=== PATIENT | female | born 1985 | race Two or more races ===

== ENCOUNTER 2017-01-13 18:24 | Inpatient (IN) | payer SELFPAY ==
[~2017-01-13] VITALS: Ht 167.6 cm; Wt 103.0 kg
[~2017-01-13 18:24] MED LIST: HYDR-971 PO; OMEP20TA8 PO
[2017-01-13] MEDS ORDERED: IV NORMAL SALINE 1000ML BAG 1,000 ML IV ONE (19:00)
[2017-01-13] MEDS ORDERED: KETOROLAC TROMETHAMINE 30 MG/ML INJ. IV ONE (19:00)
[2017-01-13 19:20] LABS: BASO # 0.1 x10^3/uL (0.0-0.2); BASO % 1 % (0-3); EOS % 1 % (0-3); HEMATOCRIT 40.2 % (36.0-47.0); HEMOGLOBIN 13.2 g/dL (12.0-15.5); LYMPH # 2.6 x10^3/uL (1.0-4.8); LYMPH % 27 % (24-48); MEAN CORPUSCULAR HEMOGLOBIN 29 pg (25-35); MEAN CORPUSCULAR HGB CONC 33 g/dL (31-37); MEAN CORPUSCULAR VOLUME 87 fL (79-100); MONO % 7 % (0-9); NEUT % 65 % (31-73); PLATELET COUNT 305 x10^3/uL (140-400); RED CELL DISTRIBUTION WIDTH 13.5 % (11.5-14.5); WHITE BLOOD COUNT 9.9 x10^3/uL (4.0-11.0)
[2017-01-13 19:22] LABS: BILIRUBIN,URINE MODERATE (NEG); GLUCOSE,URINE NEGATIVE (NEG); NITRITE,URINE NEGATIVE (NEG); PH,URINE 6.5; PROTEIN,URINE NEGATIVE (NEG-TRACE)
[2017-01-13 19:28] LABS: CALCIUM 8.7 mg/dL (8.5-10.1); CREATININE 0.6 mg/dL (0.6-1.0); GFR 116.6; POTASSIUM 3.5 mmol/L (3.5-5.1)
[2017-01-13 19:33] LABS: BACTERIA,URINE MOD /HPF (0-FEW); RBC,URINE 0 /HPF (0-2); SQUAMOUS EPITHELIAL CELL,UR MOD /LPF
[2017-01-13 19:35] LABS: ALBUMIN 3.7 g/dL (3.4-5.0); ALBUMIN/GLOBULIN RATIO 0.8 (1.0-1.7); TOTAL PROTEIN 8.2 g/dL (6.4-8.2)
--- NOTE | 2017-01-13 20:03 | RAD ---
EXAM: Abdomen sonogram limited. HISTORY: Right upper quadrant pain. TECHNIQUE: Sonographic imaging of the abdomen was performed. COMPARISON: None. FINDINGS: The liver is normal in size. There is hepatic steatosis. No focal hepatic lesion is seen. There is common bile duct dilatation, measuring 8 mm. There is a large mobile stone within the gallbladder, measuring 2.8 cm. There is sludge within the gallbladder neck. There is a positive sonographic Thompson sign. The gallbladder wall is mildly thickened, measuring 3.7 mm. The gallbladder is distended. The right kidney, pancreas, and vena cava and aorta are unremarkable. IMPRESSION: 1. Distended gallbladder containing a large mobile stone and sludge within the gallbladder neck. Given the presence of a positive sonographic Thompson sign and slight gallbladder wall thickening, the possibility of cholecystitis is not excluded. 2. Common bile duct dilatation. The possibility of a distal obstructing lesion is not excluded. Correlate with biliary laboratory values or ERCP or MRCP. 3. Hepatic steatosis. Electronically signed by: Sharon Barrios MD (01/13/2017 7:59 PM)
--- NOTE | 2017-01-13 21:06 | PHYS DOC ---
Past Medical History Past Medical History: No Pertinent History Past Surgical History: Tubal ligation Alcohol Use: None Drug Use: None Adult General Chief Complaint Chief Complaint: ABDOMINAL PAIN HPI HPI 31-year-old female with no prior abdominal history now complaining of right upper quadrant abdominal pain for 2 days. Patient has nausea and vomiting but no fevers chills sweats or shaking chills. She has no diarrhea. Pain is slightly worse with movement and deep inspiration. She has no cough or pleuritic pain. His chest pain of any kind. No vaginal discharge or bleeding. Normal bowel and bladder habits. Patient still has her gallbladder Review of Systems Review of Systems Constitutional: Denies fever or chills [] Eyes: Denies change in visual acuity, redness, or eye pain [] HENT: Denies nasal congestion or sore throat [] Respiratory: Denies cough or shortness of breath [] Cardiovascular: No additional information not addressed in HPI [] GI: Denies abdominal pain, nausea, vomiting, bloody stools or diarrhea [] : Denies dysuria or hematuria [] Musculoskeletal: Denies back pain or joint pain [] Integument: Denies rash or skin lesions [] Neurologic: Denies headache, focal weakness or sensory changes [] Endocrine: Denies polyuria or polydipsia [] Current Medications Current Medications Current Medications Medications (Trade) Dose Ordered Sig/John Start Time Stop Time Status Last Admin Dose Admin Ketorolac Tromethamine (Toradol) 30 mg 1X ONCE 01/13/17 19:00 01/13/17 19:14 DC 01/13/17 19:27 30 MG Sodium Chloride 1,000 ml @ 1,000 mls/hr 1X ONCE 01/13/17 19:00 01/13/17 19:59 DC 01/13/17 19:27 1,000 MLS/HR Allergies Allergies Allergies Coded Allergies Type Severity Reaction Last Updated Verified No Known Drug Allergies 05/31/16 No Physical Exam Physical Exam Patient nontoxic appearing alert and communicative in no acute distress Constitutional: Well developed, well nourished, no acute distress, non-toxic appearance. [] HENT: Normocephalic, atraumatic, bilateral external ears normal, oropharynx moist, no oral exudates, nose normal. [] Eyes: PERRLA, EOMI, conjunctiva normal, no discharge. [] Neck: Normal range of motion, no tenderness, supple, no stridor. [] Cardiovascular:Heart rate regular rhythm, no murmur [] Lungs & Thorax: Bilateral breath sounds clear to auscultation [] Abdomen: Bowel sounds normal, soft, positive right upper quadrant tenderness with Thompson sign. No guarding or rebound no skin changes, no masses, no pulsatile masses. [] Skin: Warm, dry, no erythema, no rash. [] Back: No tenderness, no CVA tenderness. [] Extremities: No tenderness, no cyanosis, no clubbing, ROM intact, no edema. [] Neurologic: Alert and oriented X 3, normal motor function, normal sensory function, no focal deficits noted. [] Psychologic: Affect normal, judgement normal, mood normal. [] Current Patient Data Vital Signs Vital Signs Date Time Temp Pulse Resp B/P (MAP) Pulse Ox O2 Delivery O2 Flow Rate FiO2 01/13/17 19:14 59 21 106/60 (75) 99 Room Air 01/13/17 18:50 98.0 98.0 Lab Values Laboratory Tests Test 01/13/17 17:47 01/13/17 18:25 01/13/17 18:58 POC Urine HCG, Qualitative Hcg negative (Negative) Urine Color Lora Urine Clarity Clear Urine pH 6.5 Urine Specific [place] 1.015 Urine Protein Negative mg/dL (NEG-TRACE) Urine Glucose (UA) Negative mg/dL (NEG) Urine Ketones (Stick) Negative mg/dL (NEG) Urine Blood Negative (NEG) Urine Nitrite Negative (NEG) Urine Bilirubin Moderate (NEG) Urine Urobilinogen Dipstick 1.0 mg/dL (0.2 mg/dL) Urine Leukocyte Esterase Small (NEG) Urine RBC 0 /HPF (0-2) Urine WBC 1-4 /HPF (0-4) Urine Squamous Epithelial Cells Mod /LPF Urine Amorphous Sediment Present /HPF Urine Bacteria Mod /HPF (0-FEW) Urine Mucus Slight /LPF White Blood Count 9.9 x10^3/uL (4.0-11.0) Red Blood Count 4.60 x10^6/uL (3.50-5.40) Hemoglobin 13.2 g/dL (12.0-15.5) Hematocrit 40.2 % (36.0-47.0) Mean Corpuscular Volume 87 fL (79-100) Mean Corpuscular Hemoglobin 29 pg (25-35) Mean Corpuscular Hemoglobin Concent 33 g/dL (31-37) Red Cell Distribution Width 13.5 % (11.5-14.5) Platelet Count 305 x10^3/uL (140-400) Neutrophils (%) (Auto) 65 % (31-73) Lymphocytes (%) (Auto) 27 % (24-48) Monocytes (%) (Auto) 7 % (0-9) Eosinophils (%) (Auto) 1 % (0-3) Basophils (%) (Auto) 1 % (0-3) Neutrophils # (Auto) 6.4 x10^3uL (1.8-7.7) Lymphocytes # (Auto) 2.6 x10^3/uL (1.0-4.8) Monocytes # (Auto) 0.7 x10^3/uL (0.0-1.1) Eosinophils # (Auto) 0.1 x10^3/uL (0.0-0.7) Basophils # (Auto) 0.1 x10^3/uL (0.0-0.2) Sodium Level 139 mmol/L (136-145) Potassium Level 3.5 mmol/L (3.5-5.1) Chloride Level 103 mmol/L (98-107) Carbon Dioxide Level 26 mmol/L (21-32) Anion Gap 10 (6-14) Blood Urea Nitrogen 9 mg/dL (7-20) Creatinine 0.6 mg/dL (0.6-1.0) Estimated GFR (Cockcroft-Gault) 116.6 BUN/Creatinine Ratio 15 (6-20) Glucose Level 104 mg/dL (70-99) H Calcium Level 8.7 mg/dL (8.5-10.1) Total Bilirubin 3.0 mg/dL (0.2-1.0) H Aspartate Amino Transferase (AST) 384 U/L (15-37) H Alanine Aminotransferase (ALT) 610 U/L (14-59) H Alkaline Phosphatase 210 U/L (46-116) H Total Protein 8.2 g/dL (6.4-8.2) Albumin 3.7 g/dL (3.4-5.0) Albumin/Globulin Ratio 0.8 (1.0-1.7) L Lipase 79 U/L (73-393) Laboratory Tests 01/13/17 18:58 Laboratory Tests 01/13/17 18:58 EKG EKG [] Radiology/Procedures Radiology/Procedures Right upper quadrant ultrasound with findings consistent with acute cholecystitis with gallbladder wall thickening and cholelithiasis and dilated common bile duct [] Course & Med Decision Making Course & Med Decision Making Pertinent Labs and Imaging studies reviewed. (See chart for details) Signs and symptoms consistent with suspected cholecystitis confirmed by ultrasound with elevated transaminases. Patient hemodynamically stable with no signs of acute abdomen. Case discussed with Dr. Sampson hospitalist on-call is aware of history and findings and agrees with inpatient admission to his service for further workup and surgical consultation and treatment as needed. [] Dragon Disclaimer Dragon Disclaimer This electronic medical record was generated, in whole or in part, using a voice recognition dictation system. Departure Departure Disposition: 09 ADMITTED INPATIENT Admitting Physician: Chad Sampson Condition: STABLE Referrals: TONY DICKSON (PCP) ERASTO MARTIN MD Jan 13, 2017 21:06
[2017-01-14] VITALS (7 sets, daily range): BP systolic 105–125; BP diastolic 53–75
[2017-01-14] MEDS ORDERED: RANI150T2 PO (02:07)
[2017-01-14] MEDS ORDERED: CIPR500T PO (02:07)
--- NOTE | 2017-01-14 04:05 | ACF ---
Admission Forms Criteria ABDOMINAL PAIN Clinical Indications for Admission to Inpatient Care (Place 'X' for any and all applicable criteria): Admission is indicated for ANY ONE of the following(1)(2)(3)(4)(5): [X]I. Inpatient admission required rather than observation care (Also use Abdominal Pain: Observation Care, as appropriate) because of ANY ONE of the following: [ ]a) Severe pain requiring acute inpatient management [X]b) Identification of etiology/finding that requires inpatient care (eg, aortic dissection, free air) [ ]c) Absent bowel sounds with complete ileus(6) [ ]d) Suspected toxic megacolon [ ]e) Severe electrolyte abnormalities requiring inpatient care [ ]f) High fever or infection requiring inpatient admission as indicated by ANY ONE of following(7)(8): [ ] i) Appropriate outpatient or observational care antimicrobial treatment unavailable, not effective, or not feasible [ ] ii) Documented bacteremia [ ] iii) Temperature > 104.9 degrees F (oral) [ ] iv) T >103.1 F (oral) or < 96.8 F(rectal) that does not respond to all emergency treatment measures [ ]g) Signs of intestinal obstruction [B] [ ]h) Hemodynamic instability [ ]i) IV fluid to replace significant ongoing losses (greater than 3 L/m2 per day) (12)(13) [ ]j) Percutaneous or open drainage (eg, abscess, biliary tract ) procedures [ ]k) Parenteral nutrition regimen that must be implemented on inpatient basis [ ]l) Other condition,treatment or monitoring requiring inpatient admission. [ ]II. Peritoneal signs present [ ]III. Surgery needed that cannot be performed on an ambulatory basis. [ ]IV. Evaluation requires patient to not eat or drink for extended period ( eg, more than 24 hours). [ ]V. Contraindications and/or Inappropriate clinical situations for Observational Care in patients with abdominal pain, when ANY ONE of the following is required: [ ]a) Thorough evaluation is required to prevent catastrophic events due to delays in diagnosing (e.g.Mesenteric ischemia) 1,3 [ ]b) Patient with severe pathology or with chronic symptoms unlikely to improve in the ED stay (3) [ ]. General contraindications and/or Inappropriate clinical situations for Observational Care in patients with abdominal pain, when ANY ONE of the following is required: [ ]a) Prediction of prolongation of LOS based on ANY ONE of the following may be considered as a contraindication for observational care 2, 3, 4, 5, 6, 7, 8, 9, 10, 11 [ ]i) Age > 65 yrs. [ ]ii) Patient arriving by ambulance [ ]iii) Patient with high acuity [ ]iv) Patient requiring vital sign monitoring [ ]v) Patient on IV medication [ ]b) Systolic blood pressures 180mmHg 3,12 [ ]c) Patient with altered mental status including delirium and other alteration of consciousness, (3) [ ]d) Patient whose discharge disposition will be to a longterm home or rehabilitation home should not be managed in Emergency Department Observation Unit. CMS rule requires 3 days hospital stay before such placement.3,13 [ ]e) Patient with failure to thrive due to broad array of etiologies 3,16,17 [ ]f) Inability to ambulate 3,14 Extended stay beyond goal length of stay may be needed for(2)(3): [ ]a) Persistent abdominal pain with suspected intra-abdominal process [ ]b) Diagnosed condition requiring continued stay (e.g., pancreatitis, complicated diverticulitis) [ ]c) Surgery (e.g., colectomy) The original [employer] content created by [email or web address] has been revised. The portions of the content which have been revised are identified through the use of italic text or in bold, and [facility] has neither reviewed nor approved the modified material.All other unmodified content is copyright [email or web address]. Please see references footnoted in the original [employer] edition 2016 Admission Criteria Met?: Yes BRADLEY BELL Jan 14, 2017 04:05
[2017-01-14 12:14] LABS: ALBUMIN 3.6 g/dL (3.4-5.0); CALCIUM 8.7 mg/dL (8.5-10.1); CREATININE 0.6 mg/dL (0.6-1.0); GFR 116.6; POTASSIUM 4.2 mmol/L (3.5-5.1); TOTAL BILIRUBIN 1.5 mg/dL (0.2-1.0); TOTAL PROTEIN 7.2 g/dL (6.4-8.2)
[2017-01-14] MEDS ORDERED: PROPOFOL 20 ML IV ONE (12:23)
[2017-01-14] MEDS ORDERED: fentaNYL PF VIAL 100 MCG/2 ML VIAL ONE ×2 (12:23→13:30)
[2017-01-14] MEDS ORDERED: SUCCINYLCHOLINE 200 MG/10 ML VIAL. ONE (12:23)
[2017-01-14] MEDS ORDERED: LIDOCAINE 2% PF Vial for OR 5 ML VIAL. ONE (12:23)
[2017-01-14] MEDS ORDERED: MIDAZOLAM HCL/PF 2 MG/2 ML VIAL. ONE (12:23)
[2017-01-14] MEDS ORDERED: ROCURONIUM 50 MG/5 ML VIAL. ONE (12:24)
[2017-01-14] MEDS ORDERED: IV RINGERS,LACTATED 1000ML 1,000 ML IV SCH (12:29)
[2017-01-14] MEDS ORDERED: LIDOCAINE 1% 1 ML SYRINGE. ID PRN (12:30)
[2017-01-14] MEDS ORDERED: HYDROmorphone 2 MG/ML VIAL IV PRN (12:30)
[2017-01-14] MEDS ORDERED: fentaNYL PF VIAL 100 MCG/2 ML VIAL IV PRN (12:30)
[2017-01-14] MEDS ORDERED: PROCHLORPERAZINE 10 MG/2 ML VIAL. IV PRN (12:30)
[2017-01-14] MEDS ORDERED: MORPHINE SULFATE 2 MG/ML DISP.SYRIN. IV PRN (12:30)
[2017-01-14] MEDS ORDERED: SURGICEL HEMOSTAT 4X8 EACH. ONE (12:34)
[2017-01-14] MEDS ORDERED: BUPIVACAINE-EPI 0.5%-1:200000 50 ML VIAL. ONE (12:34)
[2017-01-14] MEDS ORDERED: IOHEXOL 300 MG/ML 50 ML VIAL. ONE (12:34)
[2017-01-14] MEDS ORDERED: KETOROLAC 30 MG/ML INJ FOR OR. INJ ONE (12:43)
--- NOTE | 2017-01-14 12:46 | PDOC ---
Provider Note Provider Note #[id number]--aeceoflv. to OR for sumit cummins, judy terry. r/b d/w her via mortgage loan officer originator phone. EVANS CENTENO MD Jan 14, 2017 12:46
[2017-01-14] MEDS ORDERED: DEXAMETHASONE SOD PHOS 20 MG/5 ML VIAL. ONE (12:57)
[2017-01-14] MEDS ORDERED: NEOSTIGMINE METHYLSULFATE 5 MG/5 ML SYRINGE. ONE (13:26)
[2017-01-14] MEDS ORDERED: ONDANSETRON PF 4 MG/2 ML VIAL. ONE (13:26)
[2017-01-14] MEDS ORDERED: GLYCOPYRROLATE 1 MG/5 ML VIAL. ONE (13:26)
[2017-01-14] MEDS ORDERED: GLUCAGON,HUMAN RECOMBINANT 1 MG/ML VIAL. ONE (13:41)
[2017-01-14] MEDS ORDERED: DESFLURANE 61 TO 120 MINUTES IH ONE (14:17)
--- NOTE | 2017-01-14 14:24 | PDOC ---
BRIEF OPERATIVE NOTE Pre-Op Diagnosis #[id number] cholecystitis lap bj, ioc k yuriy jack ebl 25 ivf 800 handy well to rr stable. EVANS CENTENO MD Jan 14, 2017 14:24
[2017-01-14] MEDS: fentaNYL PF VIAL 100 MCG/2 ML VIAL IV PRN ×4 (14:32→14:59)
--- NOTE | 2017-01-14 15:35 | RAD ---
CHOLANGIOGRAM INTRAOPERATIVE Clinical Indication: ACUTE CHOLECYST JOEY Comparison: None. Findings: Fluoroscopic guidance provided by the technologist. Total fluoroscopy time 72.3 seconds. 4 fluoroscopic spot images. Contrast injected into cystic duct remnant. Opacification of intrahepatic and extrahepatic ducts. Hepatic duct is mildly prominent. Minimal spillage of contrast into the duodenum. Contrast leaked at the injection site. A filling defect in the common bile duct is not identified. IMPRESSION: No filling defect in the common bile duct is seen.
[2017-01-14] MEDS: MORPHINE SULFATE 2 MG/ML DISP.SYRIN. IV PRN ×3 (16:20→22:32)
--- NOTE | 2017-01-14 18:06 | OP ---
DATE OF SURGERY: 01/14/2017 PREOPERATIVE DIAGNOSIS: Acute cholecystitis. POSTOPERATIVE DIAGNOSIS: Acute cholecystitis. PROCEDURE: Laparoscopic cholecystectomy with intraoperative cholangiogram. SURGEON: Evans Centeno M.D. ANESTHESIA: General. ESTIMATED BLOOD LOSS: 25 mL. INTRAVENOUS FLUIDS: 800 mL. INDICATIONS: The patient is a 31-year-old female who presents with acute cholecystitis. FINDINGS: Intraoperative cholangiogram is normal. PROCEDURE IN DETAIL: After informed consent was obtained, the patient was taken to the operating room and placed in supine position. After adequate induction of general anesthesia, she was prepped and draped in the usual sterile fashion. An umbilical skin incision was made with a scalpel, subcutaneous tissues with a hemostat. [facility] was used to grab the fascia and lift anteriorly. Veress was used to gain access to the peritoneal cavity. Low opening pressures confirmed intraperitoneal placement of the Veress. Pneumoperitoneum to 15 mmHg was established followed by placement of 5 mm port. A 5 mm 30 degree lens was inserted, which revealed good port placement. No evidence of entry trauma. She was placed head up, rotated towards her left. Three additional ports were placed under direct vision, one was epigastric 11 mm port and two were 5 mm right lateral ports. The fundus of the gallbladder was retracted over liver and slightly towards the right. The infundibulum was retracted towards the right and towards her toes to open the triangle of Calot. The leading peritoneal edge was scored with cautery medially and laterally and carried back towards the liver. [place] dissector was used to dissect out the triangle of Calot. At the completion of dissection, 2 structures were seen leading directly to the gallbladder, one was a cystic artery, one was a cystic duct. The gallbladder had been dissected away from the cystic plate. The liver could be seen behind the gallbladder, base of the gallbladder was free of extraneous tissue. Two clips were placed on cystic artery proximally, one distally and a clip was placed on cystic duct adjacent to the gallbladder. Ductotomy was made with scissors. Intraoperative cholangiogram showed free flow of contrast. The cystic duct, common bile duct, common hepatic, left and right hepatics, intrahepatic radicles, free flow of contrast into the duodenum with no filling defects noted. The cholangiogram was interpreted as normal. In order to get the contrast flow into the duodenum, she was given glucagon, at which point the spasm at the ampulla resolved and then contrast was seen following into the duodenum. After completing the cholangiogram, three clips were placed on the cystic duct distal to the ductotomy. Ductotomy completed with scissors. The cystic duct was quite large and the clips barely encompassed the entire diameter of the duct. Therefore, the cystic duct stump was further secured with a PDS Endoloop. Care was taken to make sure that no clips or PDS Endoloop was placed on undissected areas of the cystic duct. The cystic artery was transected sharply. The gallbladder was removed from the bed of the liver with cautery and placed in laparoscopic bag. There was a small arterial branch bleeding along the gallbladder, liver bed, terminating on the body of the gallbladder. This was controlled with a clip information systems specialist as well. The gallbladder was placed in laparoscopic bag and brought out through the epigastric incision. The right upper quadrant was irrigated. Irrigant returned clear. No bleeding or bile leakage noted. Fascial closure device was used to close the fascia at the epigastric incision using 0 Vicryl suture. The ports removed under direct vision. They were hemostatic. Pneumoperitoneum was desufflated. Skin incisions were closed with 4-0 Monocryl in subcuticular fashion. Sterile dressings were placed after injecting additional local. She tolerated the procedure well. There were no apparent complications. She was then transferred in stable condition to the recovery room. EVANS CENTENO MD DR: LINDSEY/deanna JOB#: [id number] / [id number] TONY Zapata
[2017-01-14] MEDS: oxyCODONE/APAP 5/325 1 TAB TABLET PO PRN ×2 (18:28→22:33)
--- NOTE | 2017-01-14 23:37 | CONS ---
DATE OF CONSULTATION: 01/14/2017 I used the full time staff interpreter phone for the entire visit. CHIEF COMPLAINT: Abdominal pain. HISTORY OF PRESENT ILLNESS: The patient is a 31-year-old female who presents with abdominal pain since Monday. The pain is in her right upper quadrant. It was severe yesterday, it has improved today. It radiates to her back. It is associated with nausea, vomiting and she had jaundice on Monday. She saw her regular doctor on Monday where he started her on ciprofloxacin, but her pain persisted and she presented to the Emergency Room. The pain is a hard constant type of pain. PAST MEDICAL HISTORY: Denies. PAST SURGICAL HISTORY: Tubal ligation. MEDICATIONS AT HOME: 1. Ranitidine. 2. Ciprofloxacin. 3. Omeprazole. ALLERGIES: Denies drug allergies. SOCIAL HISTORY: She is a nonsmoker, nondrinker. FAMILY HISTORY: Noncontributory to this illness. REVIEW OF SYSTEMS: CONSTITUTIONAL: Denies fevers or chills. EYES: Denies abrupt loss of vision or double vision. EARS, NOSE, MOUTH AND THROAT: Denies loss of hearing or ringing in her ears. CARDIOVASCULAR: Denies chest pain or heart palpitations. RESPIRATORY: Denies cough or shortness of breath. GASTROINTESTINAL: See HPI. GENITOURINARY: No dysuria or hematuria. HEMATOLOGIC: No easy bleeding or bruising. MUSCULOSKELETAL: No new myalgias or arthralgias. DERMATOLOGIC: Denies skin rashes or lesions. PSYCHIATRIC: No depression or anxiety. ENDOCRINE: No polyuria or polydipsia. PHYSICAL EXAMINATION: GENERAL: This is a well-developed, well-nourished female in no acute distress. She is obese with a BMI of 36.7. VITAL SIGNS: She is afebrile with a heart rate of 73, respiratory rate 18, blood pressure 108/66, O2 sats 99% on room air. EYES: Pupils are round and reactive. Sclerae are nonicteric. HENT: Head is atraumatic. Mucous membranes moist. Face symmetric. NECK: Supple without cervical lymphadenopathy. Neck is nontender. CARDIOVASCULAR: Palpation of her right radial pulse reveals it to be 2+ right radial arterial pulse. Regular rate and rhythm by palpation. No pedal edema noted. RESPIRATORY: Respirations are nonlabored. CHEST WALL: Nontender to palpation. ABDOMEN: Soft, nondistended. She is tender in the right upper quadrant with a Thompson's sign. DERMATOLOGIC: Exposed portions of her skin are unremarkable. PSYCHIATRIC: Cooperative with appropriate mood and affect. NEUROLOGIC: No resting tremor. She can move all 4 extremities without difficulty. LABORATORY DATA: Reviewed. IMAGING: Reviewed. ASSESSMENT: 1. Acute cholecystitis. 2. Transaminitis, elevated bilirubin, although this is improved from yesterday, bilirubin on admission was 3.0, today is 1.5. 3. Obesity. PLAN: The patient is being taken to the operating room for laparoscopic cholecystectomy with intraoperative cholangiogram, possible open. Risk of bleeding, infection, need to convert to open, injury to intra-abdominal structures requiring repair including hollow viscous bile duct or arterial structures as well as bile leak, retained common duct stone requiring assistance of GI, postoperative diarrhea and remote cardiovascular risks were all discussed with the patient. Questions were answered. She desires to proceed with the procedure. EVANS CENTENO MD DR: LINDSEY/deanna JOB#: [id number] / [id number] TONY Zapata
[2017-01-15 04:05] VITALS: BP 111/61
[2017-01-15 05:59] LABS: BASO % 0 % (0-3); EOS % 0 % (0-3); HEMATOCRIT 37.9 % (36.0-47.0); HEMOGLOBIN 12.2 g/dL (12.0-15.5); LYMPH # 1.8 x10^3/uL (1.0-4.8); LYMPH % 15 % (24-48); MEAN CORPUSCULAR HEMOGLOBIN 28 pg (25-35); MEAN CORPUSCULAR HGB CONC 32 g/dL (31-37); MEAN CORPUSCULAR VOLUME 88 fL (79-100); MONO % 5 % (0-9); NEUT % 79 % (31-73); PLATELET COUNT 288 x10^3/uL (140-400); RED CELL DISTRIBUTION WIDTH 13.7 % (11.5-14.5); WHITE BLOOD COUNT 12.1 x10^3/uL (4.0-11.0)
[2017-01-15 07:00] VITALS: BP 120/70
[2017-01-15] MEDS: oxyCODONE/APAP 5/325 1 TAB TABLET PO PRN ×2 (10:00→14:06)
--- NOTE | 2017-01-15 10:02 | HP ---
ADMIT DATE: 01/13/2017 CHIEF COMPLAINT: Abdominal pain. HISTORY OF PRESENT ILLNESS: The patient is a pleasant 31-year-old healthy female who presents with abdominal pain. She rates it at 10/10. She has associated nausea. We did imaging. She has cholecystitis. I discussed the case with the ER physician. We are admitting on IV antibiotics and consultation to GI. PAST MEDICAL HISTORY: Tubal ligation. ALLERGIES: None. FAMILY HISTORY: Diabetes. SOCIAL HISTORY: She does not drink, smoke or take drugs. MEDICATIONS: Reviewed, please refer to the MRAD. REVIEW OF SYSTEMS: GENERAL: No history of weight change, weakness or fevers. SKIN: No bruising, hair changes or rashes. EYES: No blurred, double or loss of vision. NOSE AND THROAT: No history of nosebleeds, hoarseness or sore throat. HEART: No history of palpitations, chest pain or shortness of breath on exertion. LUNGS: Denies cough, hemoptysis, wheezing or shortness of breath. GASTROINTESTINAL: She complains of abdominal pain. GENITOURINARY: No history of frequency, urgency, hesitancy or nocturia. NEUROLOGIC: Denies history of numbness, tingling, tremor or weakness. PSYCHIATRIC: No history of panic, anxiety or depression. ENDOCRINE: No history of heat or cold intolerance, polyuria or polydipsia. EXTREMITIES: Denies muscle weakness, joint pain, pain on walking or stiffness. PHYSICAL EXAMINATION: VITAL SIGNS: Temperature afebrile, pulse 98, respirations 18, blood pressure 116/70. GENERAL: She is alert, cooperative. HEART: Normal S1, S2. LUNGS: Clear. ABDOMEN: Soft and tender. EXTREMITIES: No edema. SKIN: No rashes. PSYCHIATRIC: She is a little depressed. VASCULAR: Good capillary refill. ENDOCRINE: No thyromegaly. LYMPHATICS: No cervical nodes. HEMATOPOIETIC: No bruising. LABORATORY DATA: White count 9, hemoglobin 13, platelets 305. Electrolytes normal. Liver function tests are all elevated with an AST of 384 and ALT of , alkaline phosphatase of 210. ASSESSMENT AND PLAN: Cholecystitis. The patient is being admitted. We are consulting GI. IV Zosyn. Continue home medicines, IV fluids, n.p.o. for now. KIARAL Ruby BARR DO DR: Jun JOB#: [id number] / [id number]
[2017-01-15 11:00] VITALS: BP 127/71
--- NOTE | 2017-01-15 23:05 | DS ---
DATE OF DISCHARGE: 01/15/2017 ADMISSION DIAGNOSES: Symptomatic gallstones and cholecystitis. DISCHARGE DIAGNOSIS: Postop laparoscopic cholecystectomy. HOSPITAL COURSE: The patient is a pleasant 31-year-old female who presented with symptomatic gallstones and cholecystitis. She was admitted. We consulted Surgery. She was taken for a laparoscopic cholecystectomy. Post-procedure, she is doing well. DISCHARGE PHYSICAL EXAMINATION: This morning when I examined her: HEART: Her heart tones were normal. LUNGS: Clear. ABDOMEN: Soft. There is clean, dry and intact bandaging. EXTREMITIES: No edema. We plan to discharge. DISPOSITION: Home. ACTIVITY: As tolerated. DIET: Low sodium. MEDICATIONS: Please see the MRAD. TOTAL TIME ON DISCHARGE: 35 minutes. MATTHEW BARR DO DR: BEN/deanna JOB#: [id number] / [id number]
--- NOTE | 2017-01-17 15:00 | PATHOLOGY ---
PATHOLOGY REPORT * * * * * * * * FINAL DIAGNOSIS: Gallbladder, laparoscopic cholecystectomy: - Cholelithiasis. - Cholesterolosis, extensive. - Chronic cholecystitis. - Reactive changes of pericystic duct lymph node. COMMENT: There is no evidence of malignancy. (JPM/db; d/t: 01/17/2017) REPORT ELECTRONICALLY SIGNED BY: Bobo Lance M.D. DATE/TIME: 01/17/2017 14:59 * * * * * * * * GROSS PATHOLOGY: Received in formalin labeled "Edgardo Villasenor, gallbladder," is an 11.8 x 3.2 x 2.1 cm, partially opened gallbladder with bear green to purple bear serosal surfaces. Opening the gallbladder reveals dark yellow green, velvety mucosa which is nearly completely covered by brady yellow striations, suggestive of cholesterolosis and an average wall thickness of 0.4 cm. There is a single, 2.3 x 2.0 x 1.0 cm calculus present and no masses are noted grossly. Tool Grinder Operator External sections from the body and fundus are submitted along with the proximal margin in cassette A1. Along the serosal surface of the neck of the gallbladder there is a rubber bear etienne lymph node, measuring 0.7 cm. This is submitted in toto, also in cassette A1. (JPM; 01/16/17) INITIAL CPT CODE(S): A; 55914 Professional services performed by [facility] at [address] [address] Technical services performed by [facility] at [address] [place] [address], [address], [place] [address]. SPECIMEN(S) RECEIVED: A.Gallbladder CLINICAL HISTORY: Abdominal pain PATIENT: EDGARDO EPPS /AGE: 1207/07/1985 (Age: 31) PATIENT #: [id number] ALT CASE #: SPECIMEN COLLECTION DATE: 01/14/2017 SPECIMEN RECEIVED DATE: 01/16/2017 [facility] [place] [address] - PHONE: [phone] * * * END OF REPORT * * *
== END 2017-01-15 14:30 | disposition home or self-care (01) | DRG 419 ==
LOC: ER 18:24 → 4 SOUTHEST 23:00 → 6 SOUTH 23:29
PROVIDERS: ADMIT Internal Medicine; ATTEND Internal Medicine
PROC: BF131ZZ Fluoroscopy of Gallbladder and Bile Ducts using Low Osmolar Contrast (ICD-10-PCS; 2017-01-14)
PROC: 0FT44ZZ Resection of Gallbladder, Percutaneous Endoscopic Approach (ICD-10-PCS; principal; 2017-01-14 12:30)
DX: K80.00 Calculus of gallbladder with acute cholecystitis without obstruction (principal); E66.9 Obesity, unspecified; K66.8 Other specified disorders of peritoneum; Z83.3 Family history of diabetes mellitus; Z68.36 Body mass index [BMI] 36.0-36.9, adult; Z98.51 Tubal ligation status
CPT/HCPCS: 36415; 74300; 76705; 80053; 81001; 81025; 82962; 83690; 85027; 88304; 96361; 96374; J0330; J0696; J1100; J1610; J1885; J2250; J2270; J2405; J2704; J2710; J3010; J3490; J7030; J7120; Q9967; 99285-25